=== PATIENT | female | born 1995 | race Caucasian/White ===

== ENCOUNTER 2016-04-26 19:45 | Emergency (ER) | payer OTHER ==
[2016-04-26] MEDS ORDERED: ALBUTEROL SULFATE 2.5 MG/0.5 ML INH NEB SOLN As Ordered ONE (21:03)
--- NOTE | 2016-04-26 22:00 | EDDOCDS ---
Nurse's Notes [facility] Name: Cuba Woodward Age: 20 yrs Sex: Female : 1995 Arrival Date: 04/26/2016 Time: 19:45 Bed TR8 Private MD: [facility] Diagnosis: Acute bronchitis Presentation: 04/26 19:49 Presenting complaint: Patient states: dx with bronchitis, now coughing up green stuff. af2 Adult Sepsis Screening: The patient does not have new or worsening altered mentation. Patient's respiratory rate is less than 22. Systolic blood pressure is greater than 100. Patient has a qSOFA score of 0- Negative Sepsis Screen. Suicide/Homicide risk assessment- the patient denies having any suicidal and/or homicidal ideations and does not present with any other emotional, behavioral or mental health complaints. Status: Patient is not a pharmacy service associate or dependent. Transition of care: patient was not received from another setting of care. 19:49 Acuity: JENNIFER Level 4 af2 19:49 Method Of Arrival: Walkin/Carried/Asstd af2 Triage Assessment: 19:52 General: Appears uncomfortable, Behavior is appropriate for age, cooperative. Pain: af2 Location: Lungs Pain currently is 4 out of 10 on a pain scale. Pt Declines HIV testing. Respiratory: Airway is patent Respiratory effort is even, unlabored, Reports cough that is productive, green mucus. Derm: Skin is normal. Historical: - Allergies: tizanidine; - Home Meds: 1. Suboxone 8-2 mg sublingual film 1 film three times a day 2. albuterol sulfate 90 mcg/actuation Inhl HFAA 2 puffs every 4 hours 3. prednisone 20 mg Oral tab 2 tabs once daily 4. Tessalon Perles 100 mg Oral cap 1 cap 3 times per day - PMHx: Asthma; opiate abuse; - PSHx: sweat glands removed left axilla; Breast Reduction; - Social history: Smoking status: Patient uses tobacco products, current every day smoker. No barriers to communication noted, The patient speaks fluent Divehi. - Family history: No immediate family members are acutely ill. - : The pt / caregiver states he / she is not on anticoagulants. Home medication list is obtained from the patient. - Exposure Risk Screening:: None identified. Screenin:52 Screening information is obtained from the patient. Fall risk: No risks identified. mb9 Assistance ADL's: requires no assistance with activities of daily living. Abuse/DV Screen: The patient / caregiver reports he/she is: not in a situation that causes fear, pain or injury. Nutritional screening: No deficits noted. Advance Directives: There is no active DNR order. home support is adequate. Assessment: 21:52 General: Appears ill, Behavior is appropriate for age, cooperative. Respiratory: Airway mb9 is patent Respiratory effort is even, unlabored, Reports cough that is. Vital Signs: 19:47 BP 129 / 98; Pulse 97; Resp 20; Temp 97.6; Pulse Ox 100% ; Weight 109.77 kg; Height 5 elp ft. 7 in. (170.18 cm); Pain 4/10; 21:49 BP 138 / 76 LA Sitting (auto/reg); Pulse 84 MON; Resp 22 S; Temp 99.0(TE); Pulse Ox 95% cln on R/A; Pain 0/10; 19:47 Body Mass Index 37.90 (109.77 kg, 170.18 cm) [facility] Vitals: 19:47 Log In Time: April 26, 2016 at 19:45. [facility] ED Course: 19:47 Patient visited by Claire Batista PCA. elp 19:47 [facility] is Private Physician. elp 19:47 Patient moved to Waiting elp 19:48 Patient visited by Claire Batista PCA. elp 19:48 Patient moved to Pre RCE elp 19:50 Triage Initiated af2 19:53 Patient visited by Martha Horta RN. af2 20:14 Patient moved to Triage 2 mb9 20:31 Tiago Garrison PA-C is [facility]. ar2 20:31 Adryan Lucia DO is Attending Physician. ar2 20:43 Patient visited by Tiago Garrison PA-C. ar2 20:47 Patient moved to PR1 / 25 cln 21:49 Patient visited by Tanvi Briones PCA. cln 21:52 Patient moved to TR8 cln 21:52 The patient / caregiver is instructed regarding the plan of care and ED course. mb9 21:52 No IV's were initiated during this patient's visit. No procedures done that require mb9 assistance. Administered Medications: 21:07 Drug: Albuterol 2.5 mg [albuterol sulfate 2.5 mg/0.5 mL solution for nebulization (0.5 lf2 mL)] Route: Nebulizer; Point of Care Testing: Urine : 20:53 hCG Reading: Negative; Control Reading: Positive; cln Ranges: RT: 21:07 Initial Med Neb Given as ordered Patient was instructed and evaluated on procedure lf2 Patient tolerated procedure well without adverse effect. Oxygen is room air. Respiratory: Breath sounds are coarse bilaterally. Breath sounds are diminished bilaterally. Reports shortness of breath on exertion cough that is productive. Order Results: There are currently no results for this order. Outcome: 21:44 Discharge ordered by Provider. ar2 21:52 Discharge Assessment: Patient awake, alert and oriented x 3. No cognitive and/or mb9 functional deficits noted. Patient verbalized understanding of disposition instructions. patient administered narcotics - no. The following High Risk Discharge criteria are identified: None. Discharged to home ambulatory. Condition: good Condition: stable Condition: improved. Discharge instructions given to patient, Instructed on discharge instructions, follow up and referral plans. medication usage, Demonstrated understanding of instructions, medications, Pt was receptive of discharge instructions/ teaching. No special radiology studies were completed. Property :Personal belongings accompany Pt. 21:59 Patient left the ED. mb9 Signatures: Tiago Garrison PA-C PANahomy ar2 Claire Batista, MANAGER COMMUNICATION MANAGER COMMUNICATION mingp Russ Mckeon RN RN mb9 Martha Horta RN RN af2 Bria Figueredo,RT RT lf2 Tanvi Briones, MANAGER COMMUNICATION MANAGER COMMUNICATION cln MTDD
--- NOTE | 2016-04-26 22:00 | EDDOCDS ---
Physician Documentation [facility] Name: Cuba Woodward Age: 20 yrs Sex: Female : 1995 Arrival Date: 04/26/2016 Time: 19:45 Bed TR8 Private MD: [facility] Disposition: 04/26/16 21:44 Discharged to Home/Self Care. Impression: Acute bronchitis. - Condition is Stable. - Discharge Instructions: Acute Bronchitis, Smoking Cessation. - Prescriptions for Doxycycline Monohydrate 100 mg Oral Tablet - take 1 tablet by ORAL route every 12 hours for 10 days; 20 tablet. - Medication Reconciliation, Local Pharmacy Hours form. - Follow up: Private Physician; When: Call to arrange an appointment; Reason: Recheck today's complaints. Follow up: Emergency Department; When: As needed; Reason: Fever > 102F, Trouble breathing, Worsening of conditions. - Problem is new. - Symptoms have improved. Historical: - Allergies: tizanidine; - Home Meds: 1. Suboxone 8-2 mg sublingual film 1 film three times a day 2. albuterol sulfate 90 mcg/actuation Inhl HFAA 2 puffs every 4 hours 3. prednisone 20 mg Oral tab 2 tabs once daily 4. Tessalon Perles 100 mg Oral cap 1 cap 3 times per day - PMHx: Asthma; opiate abuse; - PSHx: sweat glands removed left axilla; Breast Reduction; - Social history: Smoking status: Patient uses tobacco products, current every day smoker. No barriers to communication noted, The patient speaks fluent Ecuadorean. - Family history: No immediate family members are acutely ill. - : The pt / caregiver states he / she is not on anticoagulants. Home medication list is obtained from the patient. - Exposure Risk Screening:: None identified. Vital Signs: 04/26 19:47 BP 129 / 98; Pulse 97; Resp 20; Temp 97.6; Pulse Ox 100% ; Weight 109.77 kg / 242 lbs; elp Height 5 ft. 7 in. (170.18 cm); Pain 4/10; 21:49 BP 138 / 76 LA Sitting (auto/reg); Pulse 84 MON; Resp 22 S; Temp 99.0(TE); Pulse Ox 95% cln on R/A; Pain 0/10; 19:47 Body Mass Index 37.90 (109.77 kg, 170.18 cm) elp MDM: 20:47 UCG by Nursing ordered. ar2 20:47 Albuterol 2.5 mg Nebulizer once ordered. ar2 20:48 Chest, 2 View (pa\E\lat) Ordered. [facility] Point of Care Testing: Urine : 20:53 hCG Reading: Negative; Control Reading: Positive; cln Ranges: Administered Medications: 21:07 Drug: Albuterol 2.5 mg [albuterol sulfate 2.5 mg/0.5 mL solution for nebulization (0.5 lf2 mL)] Route: Nebulizer; Signatures: Dispatcher [employer] [facility] Tiago Garrison PA-C PANicoC ar2 Russ Mckeon RN RN mb9 Martha Horta RN RN af2 Bria Fiugeredo RT lf2 MTDD
--- NOTE | 2016-04-27 08:42 | REP ---
Clinical: Productive cough and fever . Comparison: None. Technique: PA and lateral. Findings: The mediastinum and cardiac silhouette are normal. The lung burgos are clear and without acute consolidation, effusion, or pneumothorax. The skeletal structures are intact and normal. Impression: 1. No acute cardiopulmonary process. Signed by Richmond Arellano MD 04/27/2016 08:34 A
--- NOTE | 2016-04-28 23:00 | EDDOCDS ---
Nurse's Notes [facility] Name: Cuba Woodward Age: 20 yrs Sex: Female : 1995 Arrival Date: 04/26/2016 Time: 19:45 Bed TR8 Private MD: [facility]AD[facility] Diagnosis: Acute bronchitis Presentation: 04/26 19:49 Presenting complaint: Patient states: dx with bronchitis, now coughing up green stuff. af2 Adult Sepsis Screening: The patient does not have new or worsening altered mentation. Patient's respiratory rate is less than 22. Systolic blood pressure is greater than 100. Patient has a qSOFA score of 0- Negative Sepsis Screen. Suicide/Homicide risk assessment- the patient denies having any suicidal and/or homicidal ideations and does not present with any other emotional, behavioral or mental health complaints. Status: Patient is not a transportation services representative or dependent. Transition of care: patient was not received from another setting of care. 19:49 Acuity: JENNIFER Level 4 af2 19:49 Method Of Arrival: Walkin/Carried/Asstd af2 Triage Assessment: 19:52 General: Appears uncomfortable, Behavior is appropriate for age, cooperative. Pain: af2 Location: Lungs Pain currently is 4 out of 10 on a pain scale. Pt Declines HIV testing. Respiratory: Airway is patent Respiratory effort is even, unlabored, Reports cough that is productive, green mucus. Derm: Skin is normal. Historical: - Allergies: tizanidine; - Home Meds: 1. Suboxone 8-2 mg sublingual film 1 film three times a day 2. albuterol sulfate 90 mcg/actuation Inhl HFAA 2 puffs every 4 hours 3. prednisone 20 mg Oral tab 2 tabs once daily 4. Tessalon Perles 100 mg Oral cap 1 cap 3 times per day - PMHx: Asthma; opiate abuse; - PSHx: sweat glands removed left axilla; Breast Reduction; - Social history: Smoking status: Patient uses tobacco products, current every day smoker. No barriers to communication noted, The patient speaks fluent Ukrainian. - Family history: No immediate family members are acutely ill. - : The pt / caregiver states he / she is not on anticoagulants. Home medication list is obtained from the patient. - Exposure Risk Screening:: None identified. Screenin:52 Screening information is obtained from the patient. Fall risk: No risks identified. mb9 Assistance ADL's: requires no assistance with activities of daily living. Abuse/DV Screen: The patient / caregiver reports he/she is: not in a situation that causes fear, pain or injury. Nutritional screening: No deficits noted. Advance Directives: There is no active DNR order. home support is adequate. Assessment: 21:52 General: Appears ill, Behavior is appropriate for age, cooperative. Respiratory: Airway mb9 is patent Respiratory effort is even, unlabored, Reports cough that is. Vital Signs: 19:47 BP 129 / 98; Pulse 97; Resp 20; Temp 97.6; Pulse Ox 100% ; Weight 109.77 kg; Height 5 elp ft. 7 in. (170.18 cm); Pain 4/10; 21:49 BP 138 / 76 LA Sitting (auto/reg); Pulse 84 MON; Resp 22 S; Temp 99.0(TE); Pulse Ox 95% cln on R/A; Pain 0/10; 19:47 Body Mass Index 37.90 (109.77 kg, 170.18 cm) [facility] Vitals: 19:47 Log In Time: April 26, 2016 at 19:45. [facility] ED Course: 19:47 Patient visited by Claire Batista PCA. elp 19:47 [facility] is Private Physician. elp 19:47 Patient moved to Waiting elp 19:48 Patient visited by Claire Batista PCA. elp 19:48 Patient moved to Pre RCE elp 19:50 Triage Initiated af2 19:53 Patient visited by Martha Horta RN. af2 20:14 Patient moved to Triage 2 mb9 20:31 [facility] ar2 20:31 Adryan Lucia DO is Attending Physician. ar2 20:43 Patient visited by Tiago Garrison PA-C. ar2 20:47 Patient moved to PR1 / 25 cln 21:49 Patient visited by Tanvi Briones PCA. cln 21:52 Patient moved to TR8 cln 21:52 The patient / caregiver is instructed regarding the plan of care and ED course. mb9 21:52 No IV's were initiated during this patient's visit. No procedures done that require mb9 assistance. 04/27 09:00 Chest, 2 View (pa\E\lat) Returned. EDNV 10:52 T-Sheet-- Draft Copy was scanned into [employer] and attached to record. gb Administered Medications: 04/26 21:07 Drug: Albuterol 2.5 mg [albuterol sulfate 2.5 mg/0.5 mL solution for nebulization (0.5 lf2 mL)] Route: Nebulizer; Point of Care Testing: Urine : 20:53 hCG Reading: Negative; Control Reading: Positive; cln Ranges: RT: 21:07 Initial Med Neb Given as ordered Patient was instructed and evaluated on procedure lf2 Patient tolerated procedure well without adverse effect. Oxygen is room air. Respiratory: Breath sounds are coarse bilaterally. Breath sounds are diminished bilaterally. Reports shortness of breath on exertion cough that is productive. Order Results: Radiology Order: Chest, 2 View (pa\E\lat) Test: Chest, 2 View (pa\E\lat) REASON FOR EXAMINATION: productive cough, fever; Clinical: Productive cough and fever .; ; Comparison: None.; ; Technique: PA and lateral.; ; Findings:; The mediastinum and cardiac silhouette are normal. The lung burgos are clear and; without acute consolidation, effusion, or pneumothorax. The skeletal structures; are intact and normal.; ; Impression:; 1. No acute cardiopulmonary process.; ; ; Signed by; Richmond Arellano MD 04/27/2016 08:34 A; Outcome: 21:44 Discharge ordered by Provider. ar2 21:52 Discharge Assessment: Patient awake, alert and oriented x 3. No cognitive and/or mb9 functional deficits noted. Patient verbalized understanding of disposition instructions. patient administered narcotics - no. The following High Risk Discharge criteria are identified: None. Discharged to home ambulatory. Condition: good Condition: stable Condition: improved. Discharge instructions given to patient, Instructed on discharge instructions, follow up and referral plans. medication usage, Demonstrated understanding of instructions, medications, Pt was receptive of discharge instructions/ teaching. No special radiology studies were completed. Property :Personal belongings accompany Pt. 21:59 Patient left the ED. mb9 Signatures: Dispatcher [employer] EDMS Jodie Carpio, Reg Reg Tiago Bethea, PA-C PA-C ar2 Claire Batista PCA PCA elp Belles, Michael,RN RN mb9 Martha Horta,RN RN af2 Bria Figueredo,RT RT lf2 Anselmo, Tanvi, JOINERY MACHINIST JOINERY MACHINIST cln Chart Complete MTDD
--- NOTE | 2016-04-28 23:00 | EDDOCDS ---
Physician Documentation [facility] Name: Cuba Woodward Age: 20 yrs Sex: Female : 1995 Arrival Date: 04/26/2016 Time: 19:45 Bed TR8 Private MD: [facility] Disposition: 04/26/16 21:44 Discharged to Home/Self Care. Impression: Acute bronchitis. - Condition is Stable. - Discharge Instructions: Acute Bronchitis, Smoking Cessation. - Prescriptions for Doxycycline Monohydrate 100 mg Oral Tablet - take 1 tablet by ORAL route every 12 hours for 10 days; 20 tablet. - Medication Reconciliation, Local Pharmacy Hours form. - Follow up: Private Physician; When: Call to arrange an appointment; Reason: Recheck today's complaints. Follow up: Emergency Department; When: As needed; Reason: Fever > 102F, Trouble breathing, Worsening of conditions. - Problem is new. - Symptoms have improved. Historical: - Allergies: tizanidine; - Home Meds: 1. Suboxone 8-2 mg sublingual film 1 film three times a day 2. albuterol sulfate 90 mcg/actuation Inhl HFAA 2 puffs every 4 hours 3. prednisone 20 mg Oral tab 2 tabs once daily 4. Tessalon Perles 100 mg Oral cap 1 cap 3 times per day - PMHx: Asthma; opiate abuse; - PSHx: sweat glands removed left axilla; Breast Reduction; - Social history: Smoking status: Patient uses tobacco products, current every day smoker. No barriers to communication noted, The patient speaks fluent Beninese. - Family history: No immediate family members are acutely ill. - : The pt / caregiver states he / she is not on anticoagulants. Home medication list is obtained from the patient. - Exposure Risk Screening:: None identified. Vital Signs: 04/26 19:47 BP 129 / 98; Pulse 97; Resp 20; Temp 97.6; Pulse Ox 100% ; Weight 109.77 kg / 242 lbs; elp Height 5 ft. 7 in. (170.18 cm); Pain 4/10; 21:49 BP 138 / 76 LA Sitting (auto/reg); Pulse 84 MON; Resp 22 S; Temp 99.0(TE); Pulse Ox 95% cln on R/A; Pain 0/10; 19:47 Body Mass Index 37.90 (109.77 kg, 170.18 cm) elp MDM: 20:47 UCG by Nursing ordered. ar2 20:47 Albuterol 2.5 mg Nebulizer once ordered. ar2 20:48 Chest, 2 View (pa\E\lat) Ordered. EDCA 04/27 10:52 T-Sheet-- Draft Copy was scanned into [employer] and attached to record. gb Point of Care Testing: Urine : 04/26 20:53 hCG Reading: Negative; Control Reading: Positive; cln Ranges: Administered Medications: 21:07 Drug: Albuterol 2.5 mg [albuterol sulfate 2.5 mg/0.5 mL solution for nebulization (0.5 lf2 mL)] Route: Nebulizer; Signatures: Dispatcher [employer] EDCA Jodie Carpio, Reg Reg gb Tiago Garrison PA-C PA-C ar2 Russ Mckeon RN RN mb9 Martha Horta RN RN af2 Bria Figueredo RT lf2 The chart was reviewed and I authenticate all verbal orders and agree with the evaluation and treatment provided.Attachments: 04/27 10:52 T-Sheet-- Draft Copy gb Chart Complete MTDD
--- NOTE | 2016-04-28 23:00 | EDDOCDS ---
Physician Documentation [facility] Name: Cuba Woodward Age: 20 yrs Sex: Female : 1995 Arrival Date: 04/26/2016 Time: 19:45 Bed TR8 Private MD: [facility] Disposition: 04/26/16 21:44 Discharged to Home/Self Care. Impression: Acute bronchitis. - Condition is Stable. - Discharge Instructions: Acute Bronchitis, Smoking Cessation. - Prescriptions for Doxycycline Monohydrate 100 mg Oral Tablet - take 1 tablet by ORAL route every 12 hours for 10 days; 20 tablet. - Medication Reconciliation, Local Pharmacy Hours form. - Follow up: Private Physician; When: Call to arrange an appointment; Reason: Recheck today's complaints. Follow up: Emergency Department; When: As needed; Reason: Fever > 102F, Trouble breathing, Worsening of conditions. - Problem is new. - Symptoms have improved. Historical: - Allergies: tizanidine; - Home Meds: 1. Suboxone 8-2 mg sublingual film 1 film three times a day 2. albuterol sulfate 90 mcg/actuation Inhl HFAA 2 puffs every 4 hours 3. prednisone 20 mg Oral tab 2 tabs once daily 4. Tessalon Perles 100 mg Oral cap 1 cap 3 times per day - PMHx: Asthma; opiate abuse; - PSHx: sweat glands removed left axilla; Breast Reduction; - Social history: Smoking status: Patient uses tobacco products, current every day smoker. No barriers to communication noted, The patient speaks fluent Austrian. - Family history: No immediate family members are acutely ill. - : The pt / caregiver states he / she is not on anticoagulants. Home medication list is obtained from the patient. - Exposure Risk Screening:: None identified. Vital Signs: 04/26 19:47 BP 129 / 98; Pulse 97; Resp 20; Temp 97.6; Pulse Ox 100% ; Weight 109.77 kg / 242 lbs; elp Height 5 ft. 7 in. (170.18 cm); Pain 4/10; 21:49 BP 138 / 76 LA Sitting (auto/reg); Pulse 84 MON; Resp 22 S; Temp 99.0(TE); Pulse Ox 95% cln on R/A; Pain 0/10; 19:47 Body Mass Index 37.90 (109.77 kg, 170.18 cm) elp MDM: 20:47 UCG by Nursing ordered. ar2 20:47 Albuterol 2.5 mg Nebulizer once ordered. ar2 20:48 Chest, 2 View (pa\E\lat) Ordered. EDWI 04/27 10:52 T-Sheet-- Draft Copy was scanned into [employer] and attached to record. gb Point of Care Testing: Urine : 04/26 20:53 hCG Reading: Negative; Control Reading: Positive; cln Ranges: Administered Medications: 21:07 Drug: Albuterol 2.5 mg [albuterol sulfate 2.5 mg/0.5 mL solution for nebulization (0.5 lf2 mL)] Route: Nebulizer; Signatures: Dispatcher [employer] EDWI Jodie Carpio, Reg Reg gb Tiago Garrison PA-C PA-C ar2 Russ Mckeon RN RN mb9 Martha Horta RN RN af2 Bria Figueredo RT lf2 The chart was reviewed and I authenticate all verbal orders and agree with the evaluation and treatment provided.Attachments: 04/27 10:52 T-Sheet-- Draft Copy gb Chart Complete MTDD
== END 2016-04-26 21:59 | disposition home or self-care (01) ==
LOC: M ED 19:45
DX: J20.9 Acute bronchitis, unspecified (principal); J45.909 Unspecified asthma, uncomplicated; F11.10 Opioid abuse, uncomplicated; F17.210 Nicotine dependence, cigarettes, uncomplicated; Z79.51 Long term (current) use of inhaled steroids; Z79.52 Long term (current) use of systemic steroids; Z79.899 Other long term (current) drug therapy; Z88.8 Allergy status to other drugs, medicaments and biological substances

== ENCOUNTER 2016-05-07 09:19 | Outpatient (RCR) | payer OTHER | END 2016-05-19 | LOC: M PT 09:19 | PROVIDERS: ATTEND Physician Assistant | DX: Z51.89 Encounter for other specified aftercare (principal); S22.080A Wedge compression fracture of T11-T12 vertebra, initial encounter for closed fracture; X58.XXXA Exposure to other specified factors, initial encounter; Y92.89 Other specified places as the place of occurrence of the external cause; Y93.89 Activity, other specified; Y99.8 Other external cause status ==

== ENCOUNTER 2018-07-09 11:56 | Emergency (ER) | payer MEDICAID, OTHER ==
[~2018-07-09] VITALS: Ht 170.2 cm; Wt 115.0 kg
[2018-07-09 11:56] VITALS: BP 129/72
[2018-07-09] MEDS ORDERED: OFLOSO OTIC (12:42)
[2018-07-09] MEDS ORDERED: HYDR1CRE TOP (12:43)
== END 2018-07-09 13:13 | disposition home or self-care (01) ==
LOC: M ED 11:56
DX: H60.91 Unspecified otitis externa, right ear (principal); H72.92 Unspecified perforation of tympanic membrane, left ear; L30.9 Dermatitis, unspecified; Z88.8 Allergy status to other drugs, medicaments and biological substances

== ENCOUNTER → 2018-08-10 | Outpatient (CLI) | payer MEDICAID ==
[~2018-08-10] MED LIST: HYDR1CRE TOP; OFLOSO OTIC
[2018-08-10 14:13] LABS: HCG, SERUM QUALITATIVE NEGATIVE (NEGATIVE)
[2018-08-10 15:02] LABS: HEPATITIS A ANTIBODY IGM NEGATIVE (NEGATIVE); HEPATITIS B CORE ANTIBODY IGM NEGATIVE (NEGATIVE); HEPATITIS B SURFACE ANTIGEN NEGATIVE (NEGATIVE); HEPATITIS C VIRUS ABY INDEX < 0.0 INDEX (<0.8); HIV 1&2 SCREEN CENTAUR NEGATIVE (NEGATIVE)
== END ==
LOC: M LAB 13:09
PROVIDERS: ATTEND Advanced Practice Midwife
DX: Z11.3 Encounter for screening for infections with a predominantly sexual mode of transmission (principal); N92.0 Excessive and frequent menstruation with regular cycle